=== PATIENT | male | born 1980 | race Caucasian/White ===

== ENCOUNTER → 2018-01-19 13:50 | Outpatient (CLI) | payer BC, SELFPAY ==
[2018-01-19 16:24] LABS: Free T3 2.2 pg/mL (2.18-3.98); Thyroid Stim Hormone (TSH) 3.48 uIU/mL (0.358-3.74)
== END ==
PROVIDERS: Family Provider Family Medicine; PCP Family Medicine; Visit Provider Family Medicine
DX: E03.9 Hypothyroidism, unspecified (principal)
CPT/HCPCS: 36415; 84436; 84443; 84481

== ENCOUNTER → 2018-10-20 13:57 | Outpatient (CLI) | payer BC, SELFPAY ==
[2018-10-20 16:14] LABS: Free T3 2.2 pg/mL (2.18-3.98); Thyroid Stim Hormone (TSH) 3.56 uIU/mL (0.358-3.74)
== END ==
PROVIDERS: Family Provider Family Medicine; PCP Family Medicine; Referring Provider Family Medicine; Visit Provider Family Medicine
DX: E03.9 Hypothyroidism, unspecified (principal)
CPT/HCPCS: 36415; 84443; 84481

== ENCOUNTER → 2019-02-06 16:02 | Outpatient (CLI) | payer BC, SELFPAY ==
--- NOTE | 2019-02-06 16:05 | RAD_ITS ---
STUDY: X-RAY CHEST REASON FOR EXAM: Male, 38 years old. Cough. TECHNIQUE: Frontal and lateral views of the chest. COMPARISON: None. FINDINGS: The lungs are hyperexpanded. There is a linear scar/atelectatic band in the left midlung zone. There is no demonstrated pleural abnormality. Normal size heart. Normal mediastinum and bhavin. Normal visualized pulmonary arteries. Normal visualized aortic arch and descending thoracic aorta. Normal visualized thoracic spine. Normal visualized ribs, clavicles, and shoulders. There is no demonstrated abnormality of the visualized soft tissue structures of the upper abdomen. RAD/Chest PA and Lateral IMPRESSION: Hyperexpansion with scarring. No acute finding. Electronically Signed: Tyson Hector MD at 16:18 EDT , Service support ,
== END ==
PROVIDERS: Family Provider Family Medicine; PCP Family Medicine; Referring Provider Nurse Practitioner Adult Health; Visit Provider Nurse Practitioner Adult Health
DX: R05 Cough (principal)
CPT/HCPCS: 71046

== ENCOUNTER → 2019-05-03 14:54 | Outpatient (CLI) | payer BC, SELFPAY ==
[2019-05-03 18:03] LABS: Free T3 2.3 pg/mL (2.18-3.98); T4 Total, Thyroxin 8.8 ug/dL (4.5-12.1)
== END ==
PROVIDERS: Family Provider Family Medicine; PCP Family Medicine; Referring Provider Family Medicine; Visit Provider Family Medicine
DX: E03.9 Hypothyroidism, unspecified (principal)
CPT/HCPCS: 36415; 84436; 84443; 84481

== ENCOUNTER → 2020-11-13 12:05 | Outpatient (CLI) | payer BC, SELFPAY ==
[2020-11-13 15:18] LABS: Absolute Lymphocyte Count 1.45 X10^3/uL (0.83-4.51); Absolute Neutrophil Count 3.3 X10^3/uL (2.0-7.7); Basophil# 0.04 X10^3/uL; Basophil% 0.7 % (0-1); Eosinophil# 0.21 X10^3/uL; Eosinophils% 3.8 % (0-5); Hematocrit 44.8 % (40-54); Hemoglobin 15.1 g/dL (13.0-16.5); Lymphocyte # 1.45 X10^3/ul (4.0); Lymphocyte % 26.4 % (19-41); Mean Corp Hgb Conc 33.7 g/dL (32-36); Mean Corpuscular Hgb 32.5 pg (27.0-32.0); Mean Corpuscular Volume 96.6 fL (80-94); Mean Platelet Vol. 9.6 fl (6.2-12.0); Monocyte# 0.51 X10^3/uL; Monocyte% 9.3 % (0-10); NRBC Flagged by Analyzer 0 % (0-5); Neutrophil # 3.27 X10^3/uL (2.7-7.7); Neutrophil % 59.6 % (47-70); Platelet Count 310 K/mm3 (150-450); RBC Distribution Width CV 12.1 % (11.6-14.6); RBC Distribution Width SD 43.2 fl (35.1-43.9); Red Blood Count 4.64 M/mm3 (4.6-6.2); White Blood Count 5.5 K/mm3 (4.4-11.0)
[2020-11-13 16:08] LABS: ALB/GLOB Ratio 1.1 RATIO (0.9-2.4); AST(SGOT) 26 U/L (15-37); Alanine Aminotransfer ALT/SGPT 40 U/L (16-61); Albumin, Serum 4.1 g/dL (3.2-5.0); Alkaline Phosphatase 82 U/L (45-117); Anion Gap 10 (5-15); BUN 22 mg/dL (7-18); Calcium,Total 8.7 mg/dL (8.5-10.1); Chloride 106 mmol/L (98-107); Creatinine, Serum 1.05 mg/dL (0.70-1.30); EST Glomerular Filtration Rate 84 mL/min (>60); Est Glom Filt Rate - Afr Amer 101 mL/min (>60); Free T3 2.1 pg/mL (2.18-3.98); Globulin 3.6 g/dL (2.2-4.2); Glucose 89 mg/dL (74-106); Potassium 4.1 mmol/L (3.5-5.1); Protein, Total 7.7 g/dL (6.4-8.2); Sodium Level 136 mmol/L (136-145); T4 Free Direct 1.14 ng/dL (0.76-1.46); Thyroid Stim Hormone (TSH) 4.37 uIU/mL (0.358-3.74)
== END ==
PROVIDERS: PCP Family Medicine; Referring Provider Family Medicine; Visit Provider Family Medicine
DX: E03.9 Hypothyroidism, unspecified (principal); N52.9 Male erectile dysfunction, unspecified; R10.9 Unspecified abdominal pain
CPT/HCPCS: 36415; 80053; 84403; 84439; 84443; 84481; 85025

== ENCOUNTER → 2020-12-20 13:49 | Outpatient (CLI) | payer BC, SELFPAY ==
[2020-12-20 15:30] LABS: Free T3 2.3 pg/mL (2.18-3.98); T4 Total, Thyroxin 7.9 ug/dL (4.5-12.1)
== END ==
PROVIDERS: PCP Family Medicine; Visit Provider Family Medicine
DX: E03.9 Hypothyroidism, unspecified (principal)
CPT/HCPCS: 36415; 84436; 84443; 84481

== ENCOUNTER 2021-11-11 15:15 | Outpatient (CLI) | payer BC, SELFPAY ==
--- NOTE | 2021-11-11 12:30 | LES_PTH ---
PATIENT: ARGENTINA CASSIDY LOC: [facility] U#:[id number] AGE/SX: 40/M ROOM: RE11/11/[address]: Dr. Clarke Parra MD : 1980 BED: DIS: 11/11/2021 SPEC #: [id number] RECD: 11/11/21 15:00 STATUS: ANASTASIIA PICKARD #: [id number] FLO: 11/11/21 12:[address]: Clarke Parra DEPT: SURGICAL PATHOLOGY RECD BY: Anuradha Lizama ENTERED: 11/12/21 08:58 SP TYPE: Lesion OTHR DR: Dr. Adams Max MD [facility] Tissues: Skin of lip, NOS Procedures: Surgery Specimen Level IV HEADER OPERATION: Excision of lower lip lesion PRE-OP DIAGNOSIS: Localized swelling mass and lump, head TISSUE SUBMITTED: Lower lip mass MICROSCOPIC DIAGNOSIS Lesion of lower lip, biopsy: Consistent with benign mucous cyst. AM:aniceto 11/13/2021 MICROSCOPIC DESCRIPTION Slides are reviewed. GROSS DESCRIPTION Received is one container labeled with the patient's name and not further designated. The specimen consists of a single irregular fragment of martin tissue measuring 0.5 x 0.5 x 0.2 cm. The specimen is totally submitted in one cassette. / AM:aniceto 11/12/2021 TC:5 CPT: 90807
== END 2021-11-11 23:59 | disposition home or self-care (01) ==
LOC: LABSPEC 15:24
PROVIDERS: PCP Family Medicine; Referring Provider Otolaryngology; Visit Provider Otolaryngology
DX: K13.0 Diseases of lips (principal)
CPT/HCPCS: 88305

== ENCOUNTER → 2022-07-24 | Outpatient (CLI) | payer BC, SELFPAY ==
[2022-07-24 18:14] LABS: ALB/GLOB Ratio 1.2 RATIO (0.9-2.4); AST(SGOT) 23 U/L (15-37); Alanine Aminotransfer ALT/SGPT 50 U/L (16-61); Alkaline Phosphatase 63 U/L (45-117); Anion Gap 7 (5-15); BUN 13 mg/dL (7-18); BUN/Creat Ratio 14.4 RATIO (10-20); Calcium,Total 8.7 mg/dL (8.5-10.1); Chloride 104 mmol/L (98-107); Cholesterol 245 mg/dL (200); EST Glomerular Filtration Rate 99 mL/min (>60); Est Glom Filt Rate - Afr Amer 120 mL/min (>60); Free T3 3.2 pg/mL (2.18-3.98); Globulin 3.4 g/dL (2.2-4.2); Glucose 84 mg/dL (74-106); High Density Lipoprotein 86 mg/dL; Potassium 4.1 mmol/L (3.5-5.1); Protein, Total 7.4 g/dL (6.4-8.2); Sodium Level 138 mmol/L (136-145); T4 Free Direct 1.53 ng/dL (0.76-1.46); Thyroid Stim Hormone (TSH) 0.14 uIU/mL (0.358-3.74); Triglycerides 239 mg/dL; Very Low Density Lipoprotein 48 mg/dL (5-40)
== END | disposition home or self-care (01) ==
LOC: MTLAB 14:27
PROVIDERS: PCP Family Medicine; Referring Provider Family Medicine; Visit Provider Family Medicine
DX: E03.9 Hypothyroidism, unspecified (principal); R53.83 Other fatigue
CPT/HCPCS: 36415; 80053; 80061; 84439; 84443; 84481

== ENCOUNTER → 2023-10-28 | Outpatient (CLI) | payer OTHER, SELFPAY ==
[2023-10-28 18:16] LABS: Anion Gap 5 (5-15); BUN 15 mg/dL (7-18); BUN/Creat Ratio 13.3 RATIO (10-20); Calcium,Total 8.9 mg/dL (8.5-10.1); Chloride 106 mmol/L (98-107); Cholesterol 182 mg/dL (200); Creatinine, Serum 1.13 mg/dL (0.70-1.30); EST Glomerular Filtration Rate 76 mL/min (>60); Est Glom Filt Rate - Afr Amer 92 mL/min (>60); Free T3 2.6 pg/mL (2.18-3.98); Glucose 93 mg/dL (74-106); High Density Lipoprotein 64 mg/dL; Sodium Level 137 mmol/L (136-145); T4 Free Direct 1.32 ng/dL (0.76-1.46); Thyroid Stim Hormone (TSH) 1.43 uIU/mL (0.358-3.74); Triglycerides 88 mg/dL; Very Low Density Lipoprotein 18 mg/dL (5-40)
== END | disposition home or self-care (01) ==
LOC: MFPLAB 16:23
PROVIDERS: PCP Family Medicine; Visit Provider Family Medicine
DX: Z00.00 Encounter for general adult medical examination without abnormal findings (principal); E03.9 Hypothyroidism, unspecified
CPT/HCPCS: 36415; 80048; 80061; 84439; 84443; 84481